=== PATIENT | female | born 1955 | race Caucasian/White ===

== ENCOUNTER → 2019-02-26 17:34 | Outpatient (CLI) | payer OTHER, SELFPAY ==
--- NOTE | 2019-02-26 | DI.MRI.S_ITS ---
PROCEDURE: MR LUMBAR SPINE WO CON INDICATIONS: SCIATICA TECHNIQUE: Noncontrast sagittal T1 spin echo and T2 fast echo, sagittal STIR, axial T1 and T2 fast spin echo through the lumbar spine. In cases with scoliosis, additional coronal T2 fast spin echo may be performed. COMPARISON: [facility], , L-SPINE WITHOUT CONTRAST, 06/07/2012, 17:21. FINDINGS: Image quality: Excellent. Alignment and Curvature: There is normal bony alignment. Bone Marrow: Marrow is of normal overall signal. No acute vertebral body compression fractures. Spinal Cord: Conus medullaris terminates at the L1 level. Visualized cord demonstrates normal signal and size. Paraspinous Soft Tissues: No paravertebral masses. L1-L2: Normal appearance. L2-L3: Normal appearance. L3-L4: Minimal loss of disc height. Mild disc desiccation. There is posterior disc bulge and posterior central disc protrusion. Mild bilateral facet arthropathy and hypertrophy of ligamentum flavum. The central canal is mildly narrowed. No foraminal stenosis. No definitive nerve root impingement. Compared with the last exam on 06/07/2012, there is increased disc and facet degeneration. L4-L5: Ahnb-ik-yczhvwmp loss of disc height and disc desiccation. There is posterior disc bulge and posterior central disc protrusion. Annular fissure is present. Moderate bilateral facet arthropathy and hypertrophy of ligamentum flavum. The central canal is moderately narrowed. Mild foraminal stenosis bilaterally. No definitive nerve root impingement. Compared with the last exam on 06/07/2012, there is increased disc and facet degeneration. L5-S1: Normal appearance. IMPRESSION: 1. Multilevel degenerative disc disease and facet arthropathy as described. 2. Central canal stenosis, moderate at L4-L5 and mild at L3-L4. 3. Mild bilateral foraminal stenosis at L4-L5. Dictated by: Yg Conrad M.D. on 02/28/2019 at 8:49 Approved by: Yg Conrad M.D. on 02/28/2019 at 9:37
== END ==
PROVIDERS: Family Provider Family Medicine; PCP Family Medicine; Visit Provider Family Medicine
DX: M51.16 Intervertebral disc disorders with radiculopathy, lumbar region (principal); M48.061 Spinal stenosis, lumbar region without neurogenic claudication; M47.26 Other spondylosis with radiculopathy, lumbar region
CPT/HCPCS: 72148

== ENCOUNTER → 2021-08-08 11:17 | Outpatient (CLI) | payer MEDICARE, OTHER, SELFPAY ==
[2021-08-08 14:10] LABS: BUN Creatinine Ratio 21.5 (6-22); Blood Urea Nitrogen 20 mg/dL (7-17); Calcium 10.3 mg/dL (8.4-10.2); Carbon Dioxide 31 mmol/L (22-32); Chloride 104 mmol/L (98-107); Cholesterol 281 mg/dL (140-199); Estimated Glomerular Filt Rate > 60.0 mL/min (>60); Glucose 133 mg/dL (80-110); HDL Cholesterol 56 mg/dL (40-60); HEMOLYSIS < 15 (0-50); LDL Cholesterol Calculated 175 mg/dL (<100); Potassium 4.8 mmol/L (3.4-5.1); Sodium 145 mmol/L (137-145); Triglycerides 250 mg/dL (35-150)
[2021-08-08 14:38] LABS: TSH w/ Reflex to FT4 3.68 uIU/mL (0.47-4.68)
[2021-08-08 14:59] LABS: Vitamin B12 556 pg/mL (239-931)
[2021-08-08 17:05] LABS: Vitamin D 25 Hydroxy (D3) 32.9 ng/mL (30.0-100.0)
== END ==
PROVIDERS: Family Provider Family Medicine; PCP Student in an Organized Health Care Education/Training Program; Referring Provider Student in an Organized Health Care Education/Training Program; Visit Provider Student in an Organized Health Care Education/Training Program
DX: Z79.899 Other long term (current) drug therapy (principal); I10 Essential (primary) hypertension; Z13.220 Encounter for screening for lipoid disorders; E66.01 Morbid (severe) obesity due to excess calories; Z68.41 Body mass index [BMI] 40.0-44.9, adult; Z98.84 Bariatric surgery status; R60.0 Localized edema
CPT/HCPCS: 36415; 80048; 80061; 82306; 82607; 84443

== ENCOUNTER → 2021-09-15 10:50 | Outpatient (CLI) | payer MEDICARE, OTHER, SELFPAY ==
--- NOTE | 2021-09-15 10:51 | DI.MG.S_ITS ---
BILATERAL DIGITAL SCREENING MAMMOGRAM 3D/2D WITH CAD: 09/15/2021 CLINICAL: Routine screening. Comparison is made to exams dated: 05/12/2015 mammogram - [facility], 12/27/2012 mammogram, and 10/27/2011 mammogram - [facility]. There are scattered fibroglandular elements in both breasts. Current study was also evaluated with a Computer Aided Detection (CAD) system. No significant masses, calcifications, or other findings are seen in either breast. There has been no significant interval change. IMPRESSION: NEGATIVE There is no mammographic evidence of malignancy. A 1 year screening mammogram is recommended. This exam was interpreted at Station ID: [id number]. NOTE: For mammograms, a report in lay terms will be sent to the patient. Approximately 15% of breast malignancies will not be visualized mammographically. In the management of a palpable breast mass, a negative mammogram must not discourage biopsy of a clinically suspicious lesion. Electronically Signed By: Dmitry dawson/jennifer:09/15/2021 14:19:30 letter sent: Normal Exam ACR BI-RADS Category 1: Negative 3341F
== END ==
PROVIDERS: Family Provider Family Medicine; PCP Student in an Organized Health Care Education/Training Program; Referring Provider Student in an Organized Health Care Education/Training Program; Visit Provider Student in an Organized Health Care Education/Training Program
DX: Z78.0 Asymptomatic menopausal state (principal); Z12.31 Encounter for screening mammogram for malignant neoplasm of breast; M85.852 Other specified disorders of bone density and structure, left thigh
CPT/HCPCS: 77063; 77067; 77080

== ENCOUNTER → 2022-09-18 15:38 | Outpatient (CLI) | payer MEDICARE, OTHER, SELFPAY ==
--- NOTE | 2022-09-18 15:44 | DI.MG.S_ITS ---
BILATERAL DIGITAL SCREENING MAMMOGRAM 3D/2D WITH CAD: 09/18/2022 CLINICAL: Routine screening. Comparison is made to exams dated: 09/15/2021 mammogram, 05/12/2015 mammogram - [facility], and 12/27/2012 mammogram - [facility]. There are scattered areas of fibroglandular density in both breasts (category b / 25%-50% glandular tissue). Current study was also evaluated with a Computer Aided Detection (CAD) system. No significant masses, calcifications, or other findings are seen in either breast. There has been no significant interval change. IMPRESSION: NEGATIVE There is no mammographic evidence of malignancy. A 1 year screening mammogram is recommended. Based on the Tyrer Cuzick model (a risk assessment model) the patient's lifetime risk is 7.1% and her 10 year risk is 3.6%. According to the ACR, ACS, and NCCN guidelines, an annual breast MRI exam along with mammogram is recommended if the patient's lifetime risk is 20% or greater. This exam was interpreted at Station ID: [id number]. NOTE: For mammograms, a report in lay terms will be sent to the patient. Approximately 15% of breast malignancies will not be visualized mammographically. In the management of a palpable breast mass, a negative mammogram must not discourage biopsy of a clinically suspicious lesion. Electronically Signed By: Milton capone/jennifer:09/19/2022 07:53:39 letter sent: Normal Exam ACR BI-RADS Category 1: Negative 3341F
== END ==
PROVIDERS: Family Provider Family Medicine; PCP Student in an Organized Health Care Education/Training Program; Referring Provider Student in an Organized Health Care Education/Training Program; Visit Provider Student in an Organized Health Care Education/Training Program
DX: Z12.31 Encounter for screening mammogram for malignant neoplasm of breast (principal)
CPT/HCPCS: 77063; 77067

== ENCOUNTER → 2023-01-03 15:08 | Outpatient (CLI) | payer MEDICARE, OTHER, SELFPAY ==
[2023-01-03 16:50] LABS: BUN Creatinine Ratio 30.4 (6-22); Blood Urea Nitrogen 21 mg/dL (7-17); Calcium 10.4 mg/dL (8.4-10.2); Carbon Dioxide 29 mmol/L (22-32); Chloride 101 mmol/L (98-107); Estimated Glomerular Filt Rate > 60 mL/min (>60); Glucose 99 mg/dL (80-110); HEMOLYSIS < 15 (0-50); Sodium 138 mmol/L (137-145)
[2023-01-03 16:59] LABS: Vitamin D 25 Hydroxy (D3) 32.1 ng/mL (30.0-100.0)
[2023-01-04 18:50] LABS: Hep C Virus Ab w/Reflex Quant NEGATIVE s/c (NEGATIVE)
== END ==
PROVIDERS: Family Provider Family Medicine; PCP Student in an Organized Health Care Education/Training Program; Referring Provider Student in an Organized Health Care Education/Training Program; Visit Provider Student in an Organized Health Care Education/Training Program
DX: E55.9 Vitamin D deficiency, unspecified (principal); I10 Essential (primary) hypertension; Z11.59 Encounter for screening for other viral diseases; Z79.1 Long term (current) use of non-steroidal anti-inflammatories (NSAID); M81.0 Age-related osteoporosis without current pathological fracture
CPT/HCPCS: 36415; 80048; 82306; 86803

== ENCOUNTER → 2023-05-30 10:56 | Outpatient (CLI) | payer MEDICARE, OTHER, SELFPAY ==
[2023-05-30 12:39] LABS: Hemoglobin A1C% w Est Avg Glu 5.3 % (4.0-6.0)
[2023-05-30 12:50] LABS: Cholesterol 277 mg/dL (140-199); HDL Cholesterol 52 mg/dL (40-60); LDL Cholesterol Calculated 192 mg/dL (<100); Triglycerides 167 mg/dL (35-150)
[2023-05-30 13:17] LABS: TSH w/ Reflex to FT4 2.01 uIU/mL (0.47-4.68)
== END ==
PROVIDERS: Family Provider Family Medicine; PCP Student in an Organized Health Care Education/Training Program; Referring Provider Physician Assistant; Visit Provider Physician Assistant
DX: Z68.41 Body mass index [BMI] 40.0-44.9, adult (principal); E66.01 Morbid (severe) obesity due to excess calories
CPT/HCPCS: 36415; 80061; 83036; 84439; 84443

== ENCOUNTER → 2023-09-19 15:42 | Outpatient (CLI) | payer MEDICARE, OTHER, SELFPAY ==
--- NOTE | 2023-09-19 15:45 | DI.MG.S_ITS ---
BILATERAL DIGITAL SCREENING MAMMOGRAM 3D/2D WITH CAD: 09/19/2023 CLINICAL: Routine screening. Comparison is made to exams dated: 09/18/2022 mammogram, 09/15/2021 mammogram, and 05/12/2015 mammogram - [facility]. There are scattered areas of fibroglandular density in both breasts (category b / 25%-50% glandular tissue). Current study was also evaluated with a Computer Aided Detection (CAD) system. No significant masses, calcifications, or other findings are seen in either breast. There has been no significant interval change. IMPRESSION: NEGATIVE There is no mammographic evidence of malignancy. A 1 year screening mammogram is recommended. Based on the Tyrer Cuzick model (a risk assessment model) the patient's lifetime risk is 6.8% and her 10 year risk is 3.5%. According to the ACR, ACS, and NCCN guidelines, an annual breast MRI exam along with mammogram is recommended if the patient's lifetime risk is 20% or greater. This exam was interpreted at Station ID: [id number]. NOTE: For mammograms, a report in lay terms will be sent to the patient. Approximately 15% of breast malignancies will not be visualized mammographically. In the management of a palpable breast mass, a negative mammogram must not discourage biopsy of a clinically suspicious lesion. Electronically Signed By: Reynold street/jennifer:09/20/2023 11:15:12 letter sent: Normal Exam ACR BI-RADS Category 1: Negative 3341F
== END ==
PROVIDERS: Family Provider Family Medicine; PCP Family Medicine; Referring Provider Family Medicine; Visit Provider Family Medicine
DX: Z12.31 Encounter for screening mammogram for malignant neoplasm of breast (principal); R92.323 Mammographic fibroglandular density, bilateral breasts
CPT/HCPCS: 77063; 77067

== ENCOUNTER → 2023-10-08 15:56 | Outpatient (CLI) | payer MEDICARE, OTHER, SELFPAY ==
--- NOTE | 2023-10-08 15:59 | DI.RAD.S_ITS ---
PROCEDURE: XR FOOT RT MIN 3V INDICATIONS: Right foot pain TECHNIQUE: 3 views of the foot were acquired. COMPARISON: None. 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 Bunion deformity. No fractures or dislocations. 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 Cannot exclude gout versus chronic osteomyelitis. Correlate clinically. Dictated by: Esdras Owen M.D. on 10/08/2023 at 16:50 Approved by: Esdras Owen M.D. on 10/08/2023 at 16:54
--- NOTE | 2023-10-08 15:59 | DI.RAD.S_ITS ---
PROCEDURE: XR ANKLE RT MIN 3V INDICATIONS: Right ankle pain TECHNIQUE: 3 views of the ankle were acquired. COMPARISON: None. FINDINGS: Bones: Swelling is seen about the ankle joint. Degenerative changes of the ankle noted ; the ankle mortise remains grossly intact. No acute fracture or subluxation seen. Soft tissues: Diffuse soft tissue swelling IMPRESSION: Suggestion of DJD of the ankle Diffuse soft tissue swelling No acute fracture or subluxation seen Dictated by: Esdras Owen M.D. on 10/08/2023 at 16:54 Approved by: Esdras Owen M.D. on 10/08/2023 at 16:57
== END ==
PROVIDERS: Family Provider Family Medicine; PCP Family Medicine; Referring Provider Nurse Practitioner Family; Visit Provider Nurse Practitioner Family
DX: M19.071 Primary osteoarthritis, right ankle and foot (principal); M21.611 Bunion of right foot; M85.871 Other specified disorders of bone density and structure, right ankle and foot; M25.571 Pain in right ankle and joints of right foot; M79.89 Other specified soft tissue disorders
CPT/HCPCS: 73610; 73630

== ENCOUNTER → 2023-11-14 14:20 | Outpatient (CLI) | payer MEDICARE, OTHER, SELFPAY ==
[2023-11-14 15:43] LABS: Add Manual Diff / Slide Review NO; Basophils Absolute Auto 0 /uL (0-100); Basophils Percent Auto 0.7 % (0-2); Eosinophils Absolute Auto 300 /uL (0-450); Eosinophils Percent Auto 4.4 % (2-4); Hematocrit 41.9 % (36-46); Hemoglobin 14.1 g/dL (12.0-16.0); Lymphocytes Absolute Auto 2100 /uL (1100-4500); Lymphocytes Percent Auto 33.7 % (25-40); Mean Corpuscular HGB Conc 33.8 % (30-36); Mean Corpuscular Hemoglobin 29.1 PG (26-34); Monocytes Absolute Auto 400 /uL (0-900); Neutrophils Absolute Auto 3500 /uL (1500-7000); Neutrophils Percent Auto 55.2 % (50-75); Platelet Count 283 X10^3/uL (150-400); Red Blood Cell Count 4.87 X10^6/uL (4.0-5.2); Red Cell Distribution Width 13.8 % (11.6-14.8); White Blood Cell Count 6.3 X10^3/uL (4.5-11.0)
[2023-11-14 16:08] LABS: Uric Acid 7.2 mg/dL (2.5-6.2)
== END ==
LOC: LAB 14:21
PROVIDERS: Family Provider Family Medicine; PCP Family Medicine; Referring Provider Family Medicine; Visit Provider Family Medicine
DX: M79.673 Pain in unspecified foot (principal); M19.079 Primary osteoarthritis, unspecified ankle and foot; M25.476 Effusion, unspecified foot
CPT/HCPCS: 36415; 84550; 85025

== ENCOUNTER → 2023-12-26 14:09 | Outpatient (CLI) | payer MEDICARE, OTHER, SELFPAY ==
[2023-12-26 15:20] LABS: Uric Acid 7.1 mg/dL (2.5-6.2)
== END ==
PROVIDERS: Family Provider Family Medicine; PCP Family Medicine; Referring Provider Family Medicine; Visit Provider Family Medicine
DX: E79.0 Hyperuricemia without signs of inflammatory arthritis and tophaceous disease (principal)
CPT/HCPCS: 36415; 84550

== ENCOUNTER → 2024-10-17 14:14 | Outpatient (CLI) | payer MEDICARE, OTHER, SELFPAY ==
--- NOTE | 2024-10-17 14:15 | DI.MG.S_ITS ---
BILATERAL DIGITAL SCREENING MAMMOGRAM 3D/2D WITH CAD: 10/17/2024 CLINICAL: Routine screening. Comparison is made to exams dated: 09/19/2023 mammogram, 09/18/2022 mammogram, and 09/15/2021 mammogram - [facility]. The breasts are almost entirely fatty (category a/<25% glandular tissue). Current study was also evaluated with a Computer Aided Detection (CAD) system. No significant masses, calcifications, or other findings are seen in either breast. There has been no significant interval change. IMPRESSION: NEGATIVE There is no mammographic evidence of malignancy. A 1 year screening mammogram is recommended. Based on the Tyrer Cuzick model (a risk assessment model) the patient's lifetime risk is 4.2% and her 10 year risk is 2.3%. According to the ACR, ACS, and NCCN guidelines, an annual breast MRI exam along with mammogram is recommended if the patient's lifetime risk is 20% or greater. This exam was interpreted at Station ID: [id number]. NOTE: For mammograms, a report in lay terms will be sent to the patient. Approximately 15% of breast malignancies will not be visualized mammographically. In the management of a palpable breast mass, a negative mammogram must not discourage biopsy of a clinically suspicious lesion. Electronically Signed By: Rena plasencia/jennifer:10/17/2024 16:43:41 letter sent: Normal Exam ACR BI-RADS Category 1: Negative
== END ==
PROVIDERS: Family Provider Family Medicine; PCP Family Medicine; Referring Provider Family Medicine; Visit Provider Family Medicine
DX: Z12.31 Encounter for screening mammogram for malignant neoplasm of breast (principal); R92.313 Mammographic fatty tissue density, bilateral breasts
CPT/HCPCS: 77063; 77067

== ENCOUNTER → 2025-03-02 13:28 | Outpatient (CLI) | payer MEDICARE, OTHER, SELFPAY | PROVIDERS: Family Provider Family Medicine; PCP Family Medicine; Visit Provider Chiropractor | DX: R30.0 Dysuria (principal) | CPT/HCPCS: 81002; 87077; 87086; 87147 ==

== ENCOUNTER 2025-06-18 11:33 | Emergency (ER) | payer MEDICARE, OTHER, SELFPAY ==
[2025-06-18 11:42] VITALS: BP 177/114; PULSE 107; RESP 18; TEMP 36.3; O2SAT 98; BMI 38.4
[2025-06-18 11:59] VITALS: BP 153/92; PULSE 107; RESP 20
--- NOTE | 2025-06-18 12:02 | ED.SKABFB ---
HPI - Skin/Abscess/Foreign Bdy <Elsa Bailey PA-C - Last Filed: 06/18/25 17:46> General Chief complaint: Skin/Abscess/Foreign Body Stated complaint: Left arm burn Time Seen by Provider: 06/18/25 11:48 Source: patient Mode of arrival: Ambulatory History of Present Illness HPI narrative: Ms. Parks is a very pleasant 70-year-old female with a past medical history of HTN, HLD, COPD who presents to the emergency department for left arm rash x5 days. Patient states her symptoms started as left-sided neck pain and she went to the walk-in clinic and has been treating herself with methocarbamol, naproxen, heating patch. However she started developing worsening left arm rash that she initially thought was because of the heating pad however she is since developed small blisters and vesicles. She did have chickenpox as a child, rashes concerning for shingles. She denies fevers, chills, flu-like symptoms. She is having what she describes as ?zapping? pain in the left arm/neck. The rash does not extend anywhere else on the body besides the left arm. She is here with her . Related Data Home Medications ?Medication ?Instructions ?Recorded ?Confirmed cholecalciferol (vitamin D3) 50 1 tab PO QDAY ##0 01/25/17 06/15/25 mcg (2,000 unit) tablet (Vitamin D3) Previous Rx's ?Medication ?Instructions ?Recorded albuterol sulfate 90 mcg/actuation 1 puff inhalation Q4H PRN 05/29/23 aerosol inhaler (Proventil HFA) shortness of breath or wheezing #6.7 grams fluticasone propionate 50 1 spray intranasal QDAY #16 grams 05/29/23 mcg/actuation nasal spray,suspension (Flonase Allergy Relief) loratadine 10 mg capsule (Claritin 10 mg PO QDAY #90 caps 12/03/24 Liqui-Gel) montelukast 10 mg tablet 10 mg PO QPM #90 tabs 12/16/24 (Singulair) allopurinol 200 mg tablet 200 mg PO DAILY #90 tabs 02/16/25 gabapentin 600 mg tablet 1,200 mg (2 x 600 mg) PO TID #540 02/16/25 (Neurontin) tabs Held on 04/15/25. Instructions: Home Medication placed on hold at Doctor's office losartan 100 mg tablet 100 mg PO DAILY #90 tabs 05/15/25 amitriptyline 10 mg tablet 20 mg (2 x 10 mg) PO BEDTIME #180 05/19/25 tabs lidocaine 5 % topical patch 1 patch topical DAILY PRN neck 06/15/25 pain #15 ea methocarbamol 500 mg tablet 500 mg PO TID #30 tabs 06/15/25 triamcinolone acetonide 0.1 % 1 applic topical BID #15 grams 06/15/25 topical ointment hydrocodone 5 mg-acetaminophen 325 1 tab PO Q4-6H PRN pain #12 tabs 06/18/25 mg tablet ondansetron 4 mg disintegrating 4 mg PO Q8H PRN nausea and 06/18/25 tablet vomiting #12 tabs valacyclovir 1 gram tablet 1,000 mg PO TID 7 days #21 tabs 06/18/25 Allergies Allergy/AdvReac Type Severity Reaction Status Date / Time adhesive tape (ADHESIVE TAPE) Allergy Severe BLISTERS Verified 06/18/25 11:42 PAPER/SILK TAPE OK sulfamethoxazole (From Allergy Severe RASH/HIVES, Verified 06/18/25 11:42 BACTRIM) ITCHING trimethoprim (From BACTRIM) Allergy Severe RASH/HIVES, Verified 06/18/25 11:42 ITCHING milk (MILK) Allergy Unknown LACTOSE Verified 06/18/25 11:42 INTOLER Review of Systems <Elsa Bailey PA-C - Last Filed: 06/18/25 17:46> Review of Systems ROS Unobtainable: All systems reviewed & are unremarkable except as noted in HPI and below Patient History <Elsa Bailey PA-C - Last Filed: 06/18/25 17:46> Medical History Wears glasses Rosacea COPD (chronic obstructive pulmonary disease) Anxiety and depression Restless leg syndrome Migraines ADHD Osteoporosis Carpal tunnel syndrome Mumps Measles Chicken pox Vertigo Tinnitus Hemorrhoid (~1988) GERD (gastroesophageal reflux disease) Asthma Hypertension Morbid obesity with BMI of 40.0-44.9, adult Osteoarthritis of knee Surgical History Anesthesia History of dilatation and curettage Hx of laparoscopic gastric banding S/P total knee arthroplasty Family History Father History of heart disease Mother Suicide Brother Suicide Diabetes mellitus Hyperlipidemia Hypertension Brother History of heart disease Hypertension Social History Smoking Status: Former smoker Smoking Status: Former smoker Exam <Elsa Bailey PA-C - Last Filed: 06/18/25 17:46> Narrative Exam Narrative: GENERAL: 70 year old patient appears stated age. Well-developed patient, in no acute distress. HEAD: Atraumatic. Normocephalic. EYES: No scleral icterus. No injection or drainage. NECK: Trachea midline. Cervical ROM intact. CARDIOVASCULAR: Regular rate RESPIRATORY: ?Nonlabored respirations. ?Speaking in clear, full sentences. ?? NEURO: AOx3. ?Clear speech. ?Moves all 4 extremities appropriately. SKIN: On the left arm, there is an erythematous, vesicular rash that extends from the anterior proximal humerus to the wrist. It is somewhat the distribution of the C5 dermatome. There are multiple areas of erythema with overlying small clustered vesicles. No drainage. Erythema is blanchable. No petechiae or purpura. No open wounds. This rash is nowhere else on the body. Initial Vital Signs Initial Vital Signs: Vital Signs Temperature 97.3 F L 06/18/25 11:42 Pulse Rate 107 H 06/18/25 11:42 Respiratory Rate 18 06/18/25 11:42 Blood Pressure 177/114 H 06/18/25 11:42 Pulse Oximetry 98 06/18/25 11:42 Oxygen Delivery Method Room Air 06/18/25 11:42 <Soy Esteves MD - Last Filed: 06/18/25 18:02> Initial Vital Signs Initial Vital Signs: Vital Signs Temperature 97.3 F L 06/18/25 11:42 Pulse Rate 107 H 06/18/25 11:42 Respiratory Rate 18 06/18/25 11:42 Blood Pressure 177/114 H 06/18/25 11:42 Pulse Oximetry 98 06/18/25 11:42 Oxygen Delivery Method Room Air 06/18/25 11:42 Course <Elsa Bailey PA-C - Last Filed: 06/18/25 17:46> Orders Ordered: Discontinued Medications Hydrocodone Bitart/Acetaminophen (Hydrocodone/Acet 5/325 Tablet) 1 tab PO NOW ONE Stop: 06/18/25 12:16 Last Admin: 06/18/25 12:22 Dose: 1 tab Documented By: RASHMI Ondansetron HCl (Ondansetron 4 Mg Odt) 4 mg SL NOW ONE Stop: 06/18/25 12:16 Last Admin: 06/18/25 12:23 Dose: 4 mg Documented By: RASHMI Valacyclovir HCl (Valacyclovir 500 Mg Tablet) 1,000 mg PO NOW ONE Stop: 06/18/25 12:16 Last Admin: 06/18/25 12:23 Dose: 1,000 mg Documented By: RASHMI Vital Signs Vital signs: Vital Signs - 8 hr 06/18/25 11:42 06/18/25 11:59 06/18/25 12:56 Temperature 97.3 F L 99.2 F Pulse Rate 107 H 107 H 97 H Respiratory Rate 18 20 18 Blood Pressure 177/114 H 153/92 H 172/90 H Pulse Oximetry 98 96 Oxygen Delivery Method Room Air Room Air <Soy Esteves MD - Last Filed: 06/18/25 18:02> Orders Ordered: Discontinued Medications Hydrocodone Bitart/Acetaminophen (Hydrocodone/Acet 5/325 Tablet) 1 tab PO NOW ONE Stop: 06/18/25 12:16 Last Admin: 06/18/25 12:22 Dose: 1 tab Documented By: RASHMI Ondansetron HCl (Ondansetron 4 Mg Odt) 4 mg SL NOW ONE Stop: 06/18/25 12:16 Last Admin: 06/18/25 12:23 Dose: 4 mg Documented By: RASHMI Valacyclovir HCl (Valacyclovir 500 Mg Tablet) 1,000 mg PO NOW ONE Stop: 06/18/25 12:16 Last Admin: 06/18/25 12:23 Dose: 1,000 mg Documented By: RASHMI Vital Signs Vital signs: Vital Signs - 8 hr 06/18/25 11:42 06/18/25 11:59 06/18/25 12:56 Temperature 97.3 F L 99.2 F Pulse Rate 107 H 107 H 97 H Respiratory Rate 18 20 18 Blood Pressure 177/114 H 153/92 H 172/90 H Pulse Oximetry 98 96 Oxygen Delivery Method Room Air Room Air MDM - Skin/Abscess/Foreign Bdy <Elsa Bailey PA-C - Last Filed: 06/18/25 17:46> Medical Records Attestation: I reviewed the patient's medical records. [facility] [place] Narrative Medical decision making narrative: 70-year-old female with a past medical history of HTN, HLD, COPD who presents to the emergency department for left arm rash x5 days. Differential diagnosis includes but is not limited to shingles, contact dermatitis, cellulitis, etc. On exam the patient is in no acute distress, nontoxic appearing, afebrile. She has an erythematous vesicular rash on the anterior left arm. This rash is nowhere else in the body. This rash was precipitated by ?zapping? pain in the left neck region. She went to the walk-in clinic 3 days ago and was treated for her musculoskeletal neck pain at the time however the rash was not present then and has developed since then. Physical exam is concerning for shingles rash including history of chickenpox as a child. We will treat patient with valacyclovir 1 g t.i.d. x7 days, we will also treat severe rash pain with hydrocodone-acetaminophen patient is already taking naproxen as well. Discussed supportive care and expected course for shingles. She does have a PCP appointment in a few days which I recommend she keeps and follows up with. We also discussed strict ER return precautions. Patient verbalized understanding of all information agreeable with the plan, she is ambulatory and stable for discharge home with her . Discharge Plan Departure Patient Disposition: Home Clinical Impression: Shingles rash Qualifiers: Herpes zoster complications: without complications Qualified Code(s): B02.9 - Zoster without complications Instructions: DI for Shingles Activity Restrictions/Additional Instructions: Dear Ms. Parks, Thank you for coming to the emergency department. Today you have been diagnosed with shingles of your right arm. This is a viral infection. You have been prescribed an antiviral medication however please be aware that these lesions can take multiple weeks to heal. This is contagious. Please keep the arm covered and clean. Please use naproxen or ibuprofen in addition to Tylenol for pain as well as the prescribed hydrocodone for severe breakthrough pain. Please follow up with your primary care doctor. Please return to the ER with any new or worsening symptoms or other concerns. You have been prescribed a short course of narcotic medications. These are potentially dangerous and addictive medications that should be used carefully. While on these medications you cannot drive or operate heavy machinery. Additionally, you cannot sign legal documents or perform any duties such as this. Many people get constipated on narcotic medications so it would be advisable to discuss stool softeners with the pharmacist when you orange picker your prescription. Please understand that we cannot provide further refills of narcotics or controlled substances through the ED and your pain management will need to be through your Primary Care Provider Please follow up with your primary care doctor within the next 2-3 days for ER follow-up. (If you do not have a PCP you can call [phone]. ?to schedule an appointment with an [facility] Primary Care Provider) IF YOU DEVELOP ANY NEW OR WORSENING SYMPTOMS, RETURN TO THE ER! Please read the attached instructions, they highlight more specific treatments and interventions for you at home. Thank you for letting me participate in your care, Elsa Bailey PA-C Prescriptions: New valacyclovir 1 gram tablet 1,000 mg PO TID 7 Days Qty: 21 0RF hydrocodone-acetaminophen 5-325 mg tablet 1 tab PO Q4-6H PRN (Reason: pain) Qty: 12 0RF ondansetron 4 mg tablet,disintegrating 4 mg PO Q8H PRN (Reason: nausea and vomiting) Qty: 12 0RF No Action methocarbamol 500 mg tablet 500 mg PO TID Qty: 30 0RF lidocaine 5 % adhesive patch,medicated 1 patch topical DAILY PRN (Reason: neck pain) Qty: 15 0RF Rx Instructions: leave on most painful area for up to 12 hrs triamcinolone acetonide 0.1 % ointment 1 applic topical BID Qty: 15 0RF cholecalciferol (vitamin D3) [Vitamin D3] 2,000 UNIT tablet 1 tab PO QDAY Qty: 0 Claritin Liqui-Gel 10 mg capsule 10 mg PO QDAY Qty: 90 3RF montelukast [Singulair] 10 mg tablet 10 mg PO QPM Qty: 90 3RF gabapentin [Neurontin] 600 mg tablet 1,200 mg PO TID Qty: 540 3RF allopurinol 200 mg tablet 200 mg PO DAILY Qty: 90 3RF losartan 100 mg tablet 100 mg PO DAILY Qty: 90 3RF amitriptyline 10 mg tablet 20 mg PO BEDTIME Qty: 180 1RF Rx Instructions: Dose increased. albuterol sulfate [Proventil HFA] 90 mcg/actuation HFA aerosol inhaler 1 puff inhalation Q4H PRN (Reason: shortness of breath or wheezing) Qty: 6.7 11RF fluticasone propionate [Flonase Allergy Relief] 50 mcg/actuation spray,suspension 1 spray Intranasal QDAY Qty: 16 3RF Referrals: Lynette Livingston DO [Primary Care Provider, Family Practice] Stand Alone Forms: Patient Portal/API ED Sign-out <Soy Esteves MD - Last Filed: 06/18/25 18:02> Cosign ED Attending Cosignature Attestation: I was immediately available in the department for consultation. ?This documentation has been reviewed and I agree with assessment and plan. Supervised by Soy Esteves MD
--- NOTE | 2025-06-18 12:04 | PC.NURSE ---
fluid filled pustules from distal L arm to L shoulder
[2025-06-18] MEDS: ONDANSETRON 4 MG ODT SL (12:23)
[2025-06-18 12:56] VITALS: BP 172/90; PULSE 97; RESP 18; TEMP 37.3; O2SAT 96
== END 2025-06-18 12:57 | disposition home or self-care (01) ==
PROVIDERS: Emergency Provider Physician Assistant; PCP Family Medicine
DX: B02.9 Zoster without complications (principal)
CPT/HCPCS: 99283

== ENCOUNTER 2025-07-24 15:47 | Emergency (ER) | payer MEDICARE, OTHER, SELFPAY ==
[2025-07-24] VITALS (10 sets, daily range): BP systolic 167–191; BP diastolic 82–104; PULSE 80–103; RESP 18; TEMP 36.2; O2SAT 95–98; BMI 38.7
--- NOTE | 2025-07-24 16:51 | ED.ABDPAIN ---
HPI - Abdominal Pain General Chief Complaint: Shortness of Breath/Dyspnea Stated Complaint: Lt side pain under ribs x4 days Time Seen by Provider: 07/24/25 16:41 Source: patient Mode of arrival: Ambulatory History of Present Illness HPI narrative: Patient here with . Complains 4 days of constant left lower quadrant pain. Sharp pain does not radiate. No urinary complaints no black or bloody stools. History colonoscopy within the last 10 years. No known history of diverticulosis diverticulitis. Denies denies any chest pain. On exam. There is no chest pain complaints or tenderness. It is tender left lower quadrant. No rash. Patient recently just getting over shingles on the left arm. Pain only hurts when she moves. Does not want any medications at this time. Blood pressure noted. No chest pain no back pain no numbness tingling or weakness. No headache Related Data Home Medications ?Medication ?Instructions ?Recorded ?Confirmed cholecalciferol (vitamin D3) 50 1 tab PO QDAY ##0 01/25/17 06/23/25 mcg (2,000 unit) tablet (Vitamin D3) loratadine 10 mg tablet 10 mg PO DAILY 06/23/25 06/23/25 Previous Rx's ?Medication ?Instructions ?Recorded fluticasone propionate 50 1 spray intranasal QDAY #16 grams 05/29/23 mcg/actuation nasal spray,suspension (Flonase Allergy Relief) montelukast 10 mg tablet 10 mg PO QPM #90 tabs 12/16/24 (Singulair) allopurinol 200 mg tablet 200 mg PO DAILY #90 tabs 02/16/25 losartan 100 mg tablet 100 mg PO DAILY #90 tabs 05/15/25 methocarbamol 500 mg tablet 500 mg PO TID #30 tabs 06/15/25 ondansetron 4 mg disintegrating 4 mg PO Q8H PRN nausea and 06/18/25 tablet vomiting #12 tabs hydrocodone 5 mg-acetaminophen 325 1 tab PO Q4-6H PRN pain #12 tabs 06/24/25 mg tablet albuterol sulfate 90 mcg/actuation 1 puff inhalation Q4H PRN 07/07/25 aerosol inhaler shortness of breath or wheezing #6.7 grams amitriptyline 10 mg tablet 20 mg (2 x 10 mg) PO BEDTIME #180 07/13/25 tabs valacyclovir 1 gram tablet 1,000 mg PO TID shingles #30 tabs 07/13/25 (Valtrex) amoxicillin 875 mg-potassium 1 tab PO BID #14 tabs 07/24/25 clavulanate 125 mg tablet hydrocodone 5 mg-acetaminophen 325 1 tab PO Q6H PRN pain #20 tabs 07/24/25 mg tablet naloxone 4 mg/actuation nasal 4 mg intranasal Q2M PRN opioid 07/24/25 spray (Narcan) overdose #2 ea ondansetron 4 mg disintegrating 4 mg PO Q6H PRN nausea and 07/24/25 tablet vomiting #20 tabs Allergies Allergy/AdvReac Type Severity Reaction Status Date / Time adhesive tape (ADHESIVE TAPE) Allergy Severe BLISTERS Verified 07/24/25 16:03 PAPER/SILK TAPE OK sulfamethoxazole (From Allergy Severe RASH/HIVES, Verified 07/24/25 16:03 BACTRIM) ITCHING trimethoprim (From BACTRIM) Allergy Severe RASH/HIVES, Verified 07/24/25 16:03 ITCHING milk (MILK) Allergy Unknown LACTOSE Verified 07/24/25 16:03 INTOLER Review of Systems Review of Systems Narrative: GENERAL: Negative chills, fatigue, malaise, fever, sweats. HEENT: Negative sinus pain, ear pain, sore throat RESPIRATORY: Negative dyspnea, cough CARDIOVASCULAR: Negative chest pain, palpitations GASTROINTESTINAL: Negative vomiting, nausea, positive abdominal pain : Negative dysuria, frequency, hematuria MUSCULOSKELETAL: Negative muscle or bony pain SKIN: Negative rash, skin lesions NEUROLOGIC: Negative weakness, numbness ROS Unobtainable: All systems reviewed & are unremarkable except as noted in HPI and below Patient History Medical History Wears glasses Rosacea COPD (chronic obstructive pulmonary disease) Anxiety and depression Restless leg syndrome Migraines ADHD Osteoporosis Carpal tunnel syndrome Mumps Measles Chicken pox Vertigo Tinnitus Hemorrhoid (~1988) GERD (gastroesophageal reflux disease) Asthma Hypertension Morbid obesity with BMI of 40.0-44.9, adult Osteoarthritis of knee Surgical History Anesthesia History of dilatation and curettage Hx of laparoscopic gastric banding S/P total knee arthroplasty Family History Father History of heart disease Mother Suicide Brother Suicide Diabetes mellitus Hyperlipidemia Hypertension Brother History of heart disease Hypertension Exam Narrative Exam Narrative: GENERAL: in no distress, not toxic not dyspneic HEAD: Normocephalic. EYES: Pupils equal round ENT: Mucous membranes moist. NECK: Trachea midline. CARDIOVASCULAR: Regular rate and rhythm RESPIRATORY: Clear to auscultation. Breath sounds equal bilaterally. No wheezes, rales, or rhonchi. There is no no tenderness to the rib or chest wall or rash. GASTROINTESTINAL: Abdomen soft, reproducible left lower quadrant tenderness. No peritoneal signs. No guarding or rebound. No CVA tenderness. No rash. BACK: No flank tenderness. EXTREMITIES: No gross deformities. NEURO: AOx4. Clear speech SKIN: Warm and dry PSYCH: Not anxious, is cooperative Initial Vital Signs Initial Vital Signs: Vital Signs Temperature 97.1 F L 07/24/25 16:03 Pulse Rate 94 H 07/24/25 16:03 Respiratory Rate 18 07/24/25 16:03 Blood Pressure 191/104 H 07/24/25 16:03 Pulse Oximetry 97 07/24/25 16:03 Oxygen Delivery Method Room Air 07/24/25 16:03 Course Orders Ordered: ED Orders 07/24/25 16:53 CT abdomen pelvis w con Stat 07/24/25 17:08 Complete Blood Count AUTO DIFF Stat Comprehensive Metabolic Panel Stat Lipase Stat Discontinued Medications Morphine Sulfate (Morphine 4 Mg/Ml Inj) 4 mg IV NOW ONE Stop: 07/24/25 18:07 Last Admin: 07/24/25 18:30 Dose: 4 mg Documented By: BRYANF Ondansetron HCl (Ondansetron 4 Mg/2 Ml Inj) 4 mg IV NOW ONE Stop: 07/24/25 18:07 Last Admin: 07/24/25 18:30 Dose: 4 mg Documented By: IVA Vital Signs Vital signs: Vital Signs - 8 hr 07/24/25 16:03 07/24/25 16:57 07/24/25 17:03 Temperature 97.1 F L Pulse Rate 94 H 103 H Respiratory Rate 18 Blood Pressure 191/104 H Pulse Oximetry 97 96 96 Oxygen Delivery Method Room Air 07/24/25 17:07 07/24/25 17:07 07/24/25 17:30 Temperature Pulse Rate 94 H 89 Respiratory Rate Blood Pressure 167/99 H Pulse Oximetry 98 96 Oxygen Delivery Method 07/24/25 17:30 07/24/25 18:00 07/24/25 18:30 Temperature Pulse Rate 80 80 Respiratory Rate Blood Pressure 171/91 H Pulse Oximetry 98 97 Oxygen Delivery Method 07/24/25 18:44 07/24/25 18:44 07/24/25 19:00 Temperature Pulse Rate 85 86 Respiratory Rate Blood Pressure 171/94 H Pulse Oximetry 96 96 Oxygen Delivery Method 07/24/25 19:01 07/24/25 19:01 07/24/25 19:08 Temperature Pulse Rate 83 Respiratory Rate Blood Pressure 167/82 H Pulse Oximetry 95 Oxygen Delivery Method Room Air MDM - Abdominal Pain Lab Data 07/24/25 17:08 07/24/25 17:08 Labs: Lab Results 07/24/25 Range/Units 17:08 WBC 6.8 (4.5-11.0) X10^3/uL RBC 5.17 (4.0-5.2) X10^6/uL Hgb 15.4 (12.0-16.0) g/dL Hct 45.4 (36-46) % MCV 87.9 (80-100) fL MCH 29.8 (26-34) PG MCHC 33.9 (30-36) % RDW 16.2 H (11.6-14.8) % Plt Count 336 (150-400) X10^3/uL Neut % (Auto) 55.6 (50-75) % Lymph % (Auto) 33.2 (25-40) % [place] % (Auto) 6.1 (3-14) % Eos % (Auto) 4.5 H (2-4) % Baso % (Auto) 0.6 (0-2) % Neut # (Auto) 3800 (9821-1393) /uL Lymph # (Auto) 2300 (5566-5816) /uL [place] # (Auto) 400 (0-900) /uL Eos # (Auto) 300 (0-450) /uL Baso # (Auto) 0 (0-100) /uL Sodium 139 (137-145) mmol/L Potassium 3.9 (3.4-5.1) mmol/L Chloride 100 (98-107) mmol/L Carbon Dioxide 28 (22-32) mmol/L BUN 14 (7-17) mg/dL Creatinine 0.70 (0.52-1.04) mg/dL Estimated GFR > 60 (>60) mL/min BUN/Creatinine Ratio 20.0 (6-22) Glucose 103 H (70-99) mg/dL Calcium 10.8 H (8.4-10.2) mg/dL Total Bilirubin 0.8 (0.2-1.3) mg/dL AST 31 (14-36) IU/L ALT 32 (<35) IU/L Alkaline Phosphatase 73 (38-126) U/L Total Protein 8.7 H (6.3-8.2) g/dL Albumin 5.1 H (3.5-5.0) g/dL Globulin 3.6 (1.7-4.1) g/dL Albumin/Globulin Ratio 1.4 (1.0-2.8) Lipase 58 (23-300) U/L Point of care testing: Urine Dip Bedside Urine Glucose Negative Bedside Urine Bilirubin - Negative Bedside Urine Ketone - Negative Urine Specific Dulzura 1.005 Bedside Urine Occult Blood - Negative Bedside Urine pH 6.0 Bedside Urine Protein - Negative Bedside Urine Urobilinogen - Negative Bedside Urine Nitrite - Negative Bedside Urine Leukocytes - Negative Esterase Imaging Data CT scan - abdomen/pelvis: Radiologist's Impression: [place] [address] CT Scan Report Signed Patient: Barbara Parks MR#: [id number] : 1955 Acct:[id number] Age/Sex: 70 / F Date of Service: 07/24/25 Loc: ED Accession Number: [id number] Procedure: CT abdomen pelvis w con Ordering Provider: Soy Esteves MD PROCEDURE: CT ABDOMEN PELVIS W CON INDICATIONS: Left lower quadrant pain TECHNIQUE: After the administration of intravenous contrast, axial sections acquired from the lung bases to the pubic symphysis. Coronal and sagittal reformats were performed. For radiation dose reduction, the following was used: automated exposure control, adjustment of mA and/or kV according to patient size. COMPARISON: None. FINDINGS: Image quality: Diagnostic. Lower Chest: No significant findings. ABDOMEN: Liver: No solid mass. Gallbladder: No radiopaque gallstones or wall thickening. Biliary ducts: No biliary dilation. Pancreas: No ductal dilation. Spleen: Size is within normal limits. Adrenal Glands: No adrenal nodules. Kidneys and Ureters: No hydronephrosis. No solid mass. No complex renal cystic lesion which requires follow up. Stomach and Bowel: A lap band is seen in place. A gastric tube is seen, with the tip not visible, yet traversing below the level of the diaphragm. Within the descending colon, there is focal wall thickening seen with surrounding inflammatory change. Diverticula formation can be seen within this region. Colonic diverticulosis is also seen more distally, yet without findings of active diverticulitis. No dilated loops of small bowel are seen. Peritoneum: No peritoneal abscess is seen. No abnormal intraperitoneal fluid. No free air. Ventral Wall: No significant ventral hernia. Abdominal Nodes: No retroperitoneal or mesenteric adenopathy by size criteria. Vessels: Aorta and inferior vena cava are normal in size. PELVIS: Pelvic Organs: An apparent fibroid uterus is seen. No adnexal masses are seen on either side. Bladder: No bladder wall thickening, accounting for underdistention. Pelvic Nodes: No enlarged lymph nodes. Miscellaneous: No inguinal hernias are seen. Bones: No aggressive osseous abnormality. Lumbar spine degenerative changes are seen. Milder degenerative changes are seen elsewhere. IMPRESSION: Focal diverticulitis seen involving the descending colon, yet without findings of perforation or abscess. When clinically appropriate (following adequate treatment of the patient's current clinical episode) a colonoscopy is recommended for further evaluation for a potential underlying mass (if not already recently done). Additional findings: Lap band Apparent fibroid uterus Dictated by: Jr Quintero M.D. on 07/24/2025 at 17:08 Approved by: Jr Quintero M.D. on 07/24/2025 at 17:11 [facility] Narrative Medical decision making narrative: Patient here with . Complains 4 days of constant left lower quadrant pain. Sharp pain does not radiate. No urinary complaints no black or bloody stools. History colonoscopy within the last 10 years. No known history of diverticulosis diverticulitis. Denies denies any chest pain. On exam. There is no chest pain complaints or tenderness. It is tender left lower quadrant. No rash. Patient recently just getting over shingles on the left arm. Pain only hurts when she moves. Does not want any medications at this time. Blood pressure noted. No chest pain no back pain no numbness tingling or weakness. No headache MDM After history and exam, CBC CMP urinalysis CT abdomen pelvis normal saline Differential considered: Includes but not limited to diverticulitis diverticulosis bowel obstruction UTI pyelonephritis Medical records reviewed: No recent visit for this complaint Lab Test results independently reviewed as above. Pertinent findings: WBC 6.8 hemoglobin 15.4 sodium 139 potassium 3.9 BUN 14 creatinine 0.7 AST 31 ALT 32 Imaging studies independently reviewed: CT abdomen pelvis acute diverticulitis Consultations: General surgery referral provided. Re-evaluations: 6:58 p.m.. Pain is controlled. Patient feeling better. Reviewed results with patient . Being treated for diverticulitis. Outpatient general surgery referral provided for colonoscopy. They desire discharge home. Discussion: IV contrast use for CT imaging. Appropriate for discharge home. Exam is reassuring. Pain is controlled. Return precautions reviewed with patient. Referral for General surgery for outpatient colonoscopy provided. Prescriptions provided. Diagnosis: Acute diverticulitis Discharge Plan Departure Patient Disposition: Home Clinical Impression: Acute diverticulitis Instructions: DI for Diverticulitis Activity Restrictions/Additional Instructions: No driving or operating machinery today or when taking prescribed pain medication. Please see family doctor or call provided general surgery clinic on Sunday for follow up for outpatient colonoscopy. Antibiotics have been started and prescribed for you as well as pain medication. Return if worse if any questions or concerns. Narcan is a prescription provided as well for any overdose with the pain medication such as trouble breathing or confusion. Prescriptions: New hydrocodone-acetaminophen 5-325 mg tablet 1 tab PO Q6H PRN (Reason: pain) Qty: 20 0RF ondansetron 4 mg tablet,disintegrating 4 mg PO Q6H PRN (Reason: nausea and vomiting) Qty: 20 0RF amoxicillin-pot clavulanate 875-125 mg tablet 1 tab PO BID Qty: 14 0RF naloxone [Narcan] 4 mg/actuation spray,non-aerosol 4 mg intranasal Q2M PRN (Reason: opioid overdose) Qty: 2 0RF Rx Instructions: spray 1 dose into ONE nostril; alternate nostrils w each dose until help arrives No Action methocarbamol 500 mg tablet 500 mg PO TID Qty: 30 0RF cholecalciferol (vitamin D3) [Vitamin D3] 2,000 UNIT tablet 1 tab PO QDAY Qty: 0 montelukast [Singulair] 10 mg tablet 10 mg PO QPM Qty: 90 3RF allopurinol 200 mg tablet 200 mg PO DAILY Qty: 90 3RF losartan 100 mg tablet 100 mg PO DAILY Qty: 90 3RF albuterol sulfate 90 mcg/actuation HFA aerosol inhaler 1 puff inhalation Q4H PRN (Reason: shortness of breath or wheezing) Qty: 6.7 11RF amitriptyline 10 mg tablet 20 mg PO BEDTIME Qty: 180 1RF Rx Instructions: Dose increased. valacyclovir [Valtrex] 1 gram tablet 1,000 mg PO TID Qty: 30 0RF Rx Instructions: This script replaces the previous one. fluticasone propionate [Flonase Allergy Relief] 50 mcg/actuation spray,suspension 1 spray Intranasal QDAY Qty: 16 3RF loratadine 10 mg tablet 10 mg PO DAILY hydrocodone-acetaminophen 5-325 mg tablet 1 tab PO Q4-6H PRN (Reason: pain) Qty: 12 0RF ondansetron 4 mg tablet,disintegrating 4 mg PO Q8H PRN (Reason: nausea and vomiting) Qty: 12 0RF Referrals: Jordy Andrews MD [Physician, General Surgery] Lynette Livingston DO [Primary Care Provider, Family Practice] Stand Alone Forms: Patient Portal/API
[2025-07-24 17:16] LABS: Add Manual Diff / Slide Review NO; Hematocrit 45.4 % (36-46); Hemoglobin 15.4 g/dL (12.0-16.0); Lymphocytes Absolute Auto 2300 /uL (1100-4500); Mean Corpuscular HGB Conc 33.9 % (30-36); Mean Corpuscular Hemoglobin 29.8 PG (26-34); Mean Corpuscular Volume 87.9 fL (80-100); Platelet Count 336 X10^3/uL (150-400)
[2025-07-24 17:28] LABS: Alanine Aminotransferase 32 IU/L (<35); Albumin 5.1 g/dL (3.5-5.0); Albumin Globulin Ratio 1.4 (1.0-2.8); Alkaline Phosphatase 73 U/L (38-126); Blood Urea Nitrogen 14 mg/dL (7-17); Calcium 10.8 mg/dL (8.4-10.2); Carbon Dioxide 28 mmol/L (22-32); Chloride 100 mmol/L (98-107); Estimated Glomerular Filt Rate > 60 mL/min (>60); Globulin 3.6 g/dL (1.7-4.1); Glucose 103 mg/dL (70-99); HEMOLYSIS < 15 (0-50); Lipase 58 U/L (23-300); Potassium 3.9 mmol/L (3.4-5.1); Sodium 139 mmol/L (137-145); Total Protein 8.7 g/dL (6.3-8.2)
[2025-07-24] MEDS: MORPHINE 4 MG/ML INJ IV (18:30)
[2025-07-24] MEDS: ONDANSETRON 4 MG/2 ML INJ IV (18:30)
== END 2025-07-24 19:08 | disposition home or self-care (01) ==
PROVIDERS: Emergency Provider Emergency Medicine; PCP Family Medicine
DX: K57.32 Diverticulitis of large intestine without perforation or abscess without bleeding (principal)
CPT/HCPCS: 36415; 74177; 80053; 81003; 83690; 85025; 96374; 96375; 99284; J2272; J2405; Q9967